=== PATIENT | male | born 1950 | race Hispanic/Latino ===

== ENCOUNTER 2018-11-27 20:32 | Emergency (ER) | payer OTHER ==
[~2018-11-27] VITALS: Ht 162.6 cm; Wt 103.9 kg
[~2018-11-27 20:32] MED LIST: ACTOS30 MG PO; AMLODIPINE BESY10 MG PO; AMLODIPINE BESYL5 MG PO; AUGMENTIN 875-1 EACH PO; CARVEDILOL12.5 MG PO; CARVEDILOL25 MG PO; CATAPRES0.2 MG PO; CIPRO500 MG PO; DOXYCYCLINE HY100 MG PO; GLIMEPIRIDE2 MG PO; GLIMEPIRIDE4 MG PO; LANTUS100 UNITS/ SC; LANTUS100 UNITS/ SQ; LEVEMIR100 UNIT/1 SUBD; LISINOPRIL40 MG PO; METFORMIN HCL500 MG PO; METOPROLOL TART50 MG PO; NORCO 10MG-325MG1 EA PO; PHENERGAN25 MG/1 ML PO; PIOGLITAZONE HC15 MG PO; PIOGLITAZONE HC45 MG PO; SENNO8.6 MG PO; SENNOSIDES-DOC1 EACH
[2018-11-27] MEDS ORDERED: ASPIRIN 81 MG CHEW TAB PO ONE (20:45)
[2018-11-27 20:46] LABS: BASOPHILS # (AUTO) 0.1 (0.0-0.1); BASOPHILS % 0.9 % (0.0-1.0); EOSINOPHILS # (AUTO) 0.4 (0.0-0.4); EOSINOPHILS % 4.8 % (0.0-6.0); HEMATOCRIT 36.5 % (38.2-49.6); HEMOGLOBIN 12.4 g/dL (14.0-18.0); LYMPHOCYTES # (AUTO) 2.8 (1.0-3.2); LYMPHOCYTES % 37.2 % (18.0-39.1); MEAN CORPUSCULAR HEMOGLOBIN 30.2 pg (28-32); MONOCYTES # (AUTO) 0.7 (0.2-0.8); MONOCYTES % 8.6 % (4.4-11.3); NEUTROPHILS # (AUTO) 3.6 (2.1-6.9); PLATELET COUNT 126 x10e3/uL (140-360); RED CELL DISTRIBUTION WIDTH 12.6 % (11.7-14.4)
[2018-11-27 20:54] LABS: INR 0.94; PROTHROMBIN TIME 13.4 seconds (11.9-14.5)
[2018-11-27 20:55] LABS: PARTIAL THROMBOPLASTIN TIME 31.9 seconds (23.8-35.5)
[2018-11-27 21:02] LABS: ALBUMIN 3.2 g/dL (3.5-5.0); ANION GAP 14.4 mmol/L (8-16); CALCIUM 8.7 mg/dL (8.4-10.2); CREATININE, SERUM 1.82 mg/dL (0.72-1.25); POTASSIUM 4.4 mmol/L (3.5-5.1)
[2018-11-27 21:08] LABS: CREATINE KINASE MB 3.3 ng/mL (0-5.0)
[2018-11-27] MEDS ORDERED: FOLIC ACID1 MG PO (22:50)
[2018-11-27] MEDS ORDERED: PRAVASTATIN SOD20 MG (22:50)
[2018-11-27] MEDS ORDERED: VITAMIN D1000 UNI1 PO (22:50)
[2018-11-28 02:23] LABS: CREATINE KINASE 122 IU/L (30-200)
[2018-11-28 02:46] VITALS: BP 140/65
== END 2018-11-28 03:14 | disposition home or self-care (01) ==
LOC: ER 20:32
DX: R07.89 Other chest pain (principal)
CPT/HCPCS: 36415; 80053; 82550; 82553; 84484; 85025; 85610; 85730; 99284